=== PATIENT | male | born 1965 | race Two or more races ===

== ENCOUNTER 2019-05-19 15:19 | Emergency (ER) | payer SELFPAY ==
[2019-05-19] MEDS ORDERED: ceFAZolin 1 GM Vial IM ONE (15:24)
[2019-05-19] MEDS ORDERED: Diphtheria,Pertussis(Acell),Tetanus Vaccine 0.5 ML Syringe IM ONE (15:24)
[2019-05-19] MEDS ORDERED: Ondansetron 4 MG Tab.DIS PO ONE (15:30)
[2019-05-19] MEDS ORDERED: Acetaminophen/oxyCODONE 325-7.5 MG Tab PO ONE (15:30)
--- NOTE | 2019-05-19 15:30 | EDM.PDOC ---
ED HPI GENERAL MEDICAL PROBLEM - General Chief Complaint: Laceration Stated Complaint: CUT LEFT FINGER OFF Time Seen by Provider: 05/19/19 15:21 Source of Information: Reports: Patient History Limitations: Reports: No Limitations - History of Present Illness INITIAL COMMENTS - FREE TEXT/NARRATIVE: HISTORY AND PHYSICAL: History of present illness: Patient is a 53-year-old male who is brought to the emergency room with a avulsion injury to the left fourth digit. He states he was placing a trailer on a pierce when his finger got pinched resulting in a avulsion injury to the distal aspect of the left fourth fingertip. Denies any other extremity involvement. Has no systemic complaints. Unsure of last Tetanus. Review of systems: As per history of present illness and below otherwise all systems reviewed and negative. Past medical history: As per history of present illness and as reviewed below otherwise noncontributory. Surgical history: As per history of present illness and as reviewed below otherwise noncontributory. Social history: See social history for further information Family history: As per history of present illness and as reviewed below otherwise noncontributory. Physical exam: General: Well-developed and well nourished 53-year-old male. Alert and oriented. Nontoxic appearing and in no acute distress. HEENT: Atraumatic, normocephalic, pupils equal and reactive bilaterally, negative for conjunctival pallor or scleral icterus, mucous membranes moist, trachea midline. No drooling or trismus noted. No meningeal signs. No hot potato voice noted. Lungs: Clear to auscultation, breath sounds equal bilaterally, chest nontender. Heart: S1S2, regular rate and rhythm without overt murmur Abdomen: Soft, nondistended, nontender. Skin: Avulsion injury above the DIP joint of the left fourth fingertip, exposed bone is noted. Otherwise intact, warm, dry. No lesions or rashes noted. Extremities: See SKIN for details. He moves all extremities per self without difficulty or deficits. Neurovascular unremarkable. Neuro: Awake, alert, oriented. Cranial nerves II through XII unremarkable. Cerebellum unremarkable. Motor and sensory unremarkable throughout. Exam nonfocal. Notes: Dr Wang assessed this patient as well. We do not have a hand surgeon available. X-ray shows soft tissue and bony amputation within the distal phalanx of the fourth digit. Small displaced bony fragment is noted. Dr Gilbert, Hand Surgeon at [facility] in [place] was consulted on this case. He is agreeing to see this patient, will go through the emergency room. Dr. Sen was made aware of this patient. Patient will go by private vehicle, friend at bedside will drive him. Vaseline occlusive dressing was applied. Bleeding has stopped. Vital signs remain stable. Patient was encouraged to be nothing by mouth. Supportive care measures were reviewed and discussed. Voices understanding and is agreeable to plan of care. Denies any further questions or concerns at this time. Diagnostics: X-ray Therapeutics: Tdap, Ancef, Wound Care, Ace, Zofran Impression: Finger Avulsion, fourth left digit Open phalanx finger fracture, fourth left digit Plan: 1. NOTHING TO EAT or DRINK until cleared by the doctor in [place]. 2. Go directly to [facility] ER. Dr Gilbert the Hand Surgeon will see you there. 3. Return to the ED as needed as discussed. Definitive disposition and diagnosis as appropriate pending reevaluation and review of above. - Related Data Allergies Allergy/AdvReac Type Severity Reaction Status Date / Time No Known Allergies Allergy Verified 05/19/19 15:25 Home Meds: Home Meds Aspirin [Adult Low Dose Aspirin EC] 81 mg PO DAILY 05/19/19 [History] Lisinopril 10 mg PO DAILY 05/19/19 [History] atorvaSTATin [Lipitor] 20 mg PO BEDTIME 05/19/19 [History] metFORMIN [Glucophage] 500 mg PO DAILY 05/19/19 [History] ED ROS GENERAL - Review of Systems Review Of Systems: ROS reveals no pertinent complaints other than HPI. ED EXAM, SKIN/RASH Exam: See Below (See dictation) Course - Vital Signs Last Recorded V/S: Last Vital Signs Temp 97.0 F 05/19/19 15:23 Pulse 104 H 05/19/19 15:23 Resp 18 05/19/19 15:23 BP 172/100 H 05/19/19 15:23 Pulse Ox 99 05/19/19 15:23 - Orders/Labs/Meds Orders: Active Orders 24 hr Category Date Time Status Vaccines to be Administered [RC] PER UNIT ROUTINE Care 05/19/19 15:24 Active Meds: Medications Discontinued Medications Generic Name Dose Route Start Last Admin Trade Name Freq PRN Reason Stop Dose Admin Hydrocodone Bitart/Acetaminophen Confirm 05/19/19 15:53 Ace 325-10 Mg Administered 05/19/19 15:54 Dose 1 tab .ROUTE .STK-MED ONE Hydrocodone Bitart/Acetaminophen 1 tab 05/19/19 16:03 05/19/19 15:57 Ace 325-10 Mg PO 05/19/19 16:04 1 tab ONETIME ONE Administration Cefazolin Sodium 1 gm 05/19/19 15:24 05/19/19 15:45 Ancef IM 05/19/19 15:25 1 gm ONETIME ONE Administration Diphtheria/Tetanus/Acell Pertussis 0.5 ml 05/19/19 15:24 05/19/19 15:44 Adacel IM 05/19/19 15:25 0.5 ml .ONCE ONE Administration Sterile Water Confirm 05/19/19 15:32 05/19/19 15:54 Sterile Water For Injection Administered 05/19/19 15:33 2.5 mls/hr Dose Administration 20 mls @ as directed .ROUTE .STK-MED ONE Ondansetron HCl 4 mg 05/19/19 15:30 05/19/19 15:53 Zofran Odt PO 05/19/19 15:31 4 mg ONETIME ONE Administration Oxycodone/Acetaminophen 1 tab 05/19/19 15:30 05/19/19 16:04 Percocet 325-7.5 Mg PO 05/19/19 15:31 Not Given ONETIME ONE Departure - Departure Time of Disposition: 15:34 Disposition: Home, Self-Care 01 Clinical Impression: Avulsion, finger tip Qualifiers: Encounter type: initial encounter Qualified Code(s): S61.209A - Unspecified open wound of unspecified finger without damage to nail, initial encounter Open fracture of phalanx of digit of hand Qualifiers: Encounter type: initial encounter Qualified Code(s): S62.609B - Fracture of unspecified phalanx of unspecified finger, initial encounter for open fracture - Discharge Information Referrals: PCP,Unknown [Primary Care Provider] - Forms: ED Department Discharge Additional Instructions: The following information is given to patients seen in the emergency department who are being discharged to home. This information is to outline your options for follow-up care. We provide all patients seen in our emergency department with a follow-up referral. The need for follow-up, as well as the timing and circumstances, are variable depending upon the specifics of your emergency department visit. If you don't have a primary care physician on staff, we will provide you with a referral. We always advise you to contact your personal physician following an emergency department visit to inform them of the circumstance of the visit and for follow-up with them and/or the need for any referrals to a consulting specialist. The emergency department will also refer you to a specialist when appropriate. This referral assures that you have the opportunity for follow-up care with a specialist. All of these measure are taken in an effort to provide you with optimal care, which includes your follow-up. Under all circumstances we always encourage you to contact your private physician who remains a resource for coordinating your care. When calling for follow-up care, please make the office aware that this follow-up is from your recent emergency room visit. If for any reason you are refused follow-up, please contact the [facility] Emergency Department at and asked to speak to the emergency department charge nurse. [address] (Emergency Room) [facility] [address] 1. NOTHING TO EAT or DRINK until cleared by the doctor in [place]. 2. Go directly to [facility] ER. Dr Gilbert the Hand Surgeon will see you there. 3. Return to the ED as needed as discussed. - My Orders Last 24 Hours: My Active Orders 05/19/19 15:24 Vaccines to be Administered [RC] PER UNIT ROUTINE - Assessment/Plan Last 24 Hours: My Active Orders 05/19/19 15:24 Vaccines to be Administered [RC] PER UNIT ROUTINE
[2019-05-19] MEDS ORDERED: Water For Injection, Sterile 20 ML ONE (15:32)
[2019-05-19] MEDS: Acetaminophen/HYDROcodone 325-10 MG Tab ONE ×2 (15:57→16:13)
[2019-05-19] MEDS ORDERED: Acetaminophen/HYDROcodone 325-10 MG Tab PO ONE (16:03)
--- NOTE | 2019-05-19 16:10 | CR ---
Left fourth finger: Three views left fourth finger were obtained. Soft tissue and bony amputation is identified within the distal phalanx of the fourth digit. Small bony fragment remains. No proximal abnormality is seen. Impression: 1. Soft tissue and bony amputation within the distal phalanx of the fourth digit. 2. Small displaced bony fragment is noted. Diagnostic code #3 MTDD
== END 2019-05-19 16:10 ==
LOC: MW.ED 15:19
DX: S62.635B Displaced fracture of distal phalanx of left ring finger, initial encounter for open fracture (principal); Z23 Encounter for immunization; Z79.82 Long term (current) use of aspirin; Z79.84 Long term (current) use of oral hypoglycemic drugs; Z79.899 Other long term (current) drug therapy; W23.1XXA Caught, crushed, jammed, or pinched between stationary objects, initial encounter
CPT/HCPCS: 73140; 90471; 90715; 96372; 99284; A9270; J0690; 99283

== ENCOUNTER 2019-06-14 13:22 | Emergency (ER) | payer SELFPAY | END 2019-06-14 13:51 | disposition left against medical advice (07) | LOC: MW.ED 13:22 | DX: Z53.21 Procedure and treatment not carried out due to patient leaving prior to being seen by health care provider (principal) ==